=== PATIENT | male | born 1955 | race African-American/Black ===

== ENCOUNTER 2018-11-03 14:33 | Emergency (ER) | payer OTHER, MEDICAID ==
[~2018-11-03] VITALS: Ht 185.4 cm; Wt 90.7 kg
[~2018-11-03 14:33] MED LIST: GLU500 PO; PHEN100C3 PO; QUET200T PO
[2018-11-03 14:36] VITALS: BP 130/76
[2018-11-03 14:56] VITALS: BP 112/68
== END 2018-11-03 17:09 | disposition home or self-care (01) ==
LOC: MED 14:33
DX: N39.0 Urinary tract infection, site not specified (principal); E11.9 Type 2 diabetes mellitus without complications; I10 Essential (primary) hypertension; E07.9 Disorder of thyroid, unspecified; Z86.73 Personal history of transient ischemic attack (TIA), and cerebral infarction without residual deficits; Z79.84 Long term (current) use of oral hypoglycemic drugs; Z79.899 Other long term (current) drug therapy
CPT/HCPCS: 81002; 99283